=== PATIENT | female | born 1985 | race Caucasian/White ===

== ENCOUNTER 2020-09-30 20:11 | Emergency (ER) | payer MEDICAID ==
[~2020-09-30] VITALS: Ht 149.9 cm; Wt 113.0 kg
[2020-09-30 20:24] VITALS: BP 156/87
== END 2020-09-30 21:25 | disposition home or self-care (01) ==
LOC: ER 20:11
DX: U07.1 COVID-19 (principal); Z90.49 Acquired absence of other specified parts of digestive tract
CPT/HCPCS: 71045; 81025; 93005; 99283